=== PATIENT | female | born 1980 | race Caucasian/White ===

== ENCOUNTER 2019-09-22 18:59 | Emergency (ER) | payer SELFPAY ==
[~2019-09-22] VITALS: Ht 162.6 cm; Wt 54.5 kg
[2019-09-22 19:24] VITALS: BP 142/99
== END 2019-09-22 20:05 | disposition left against medical advice (07) ==
LOC: EMS 19:01
DX: R51 Headache (principal); Z53.21 Procedure and treatment not carried out due to patient leaving prior to being seen by health care provider